=== PATIENT | female | born 1980 | race Caucasian/White ===

== ENCOUNTER 2018-11-05 20:59 | Emergency (ER) | payer MEDICAID ==
[2018-11-05 21:17] VITALS: BP 148/87
--- NOTE | 2018-11-05 21:55 | EDM.PDOC ---
<Sonal Ballard N - Last Filed: 11/05/18 21:49> ED HPI GENERAL MEDICAL PROBLEM - General Chief Complaint: Fever Stated Complaint: SORE THROAT,FEVER/CHILLS Time Seen by Provider: 11/05/18 21:40 Source of Information: Reports: Patient History Limitations: Reports: No Limitations - History of Present Illness INITIAL COMMENTS - FREE TEXT/NARRATIVE: Anabella is a 38-year-old female who presents to the ER with complaints of a sore throat for the past 2.5 days. Reports that she has had strep throat infections multiple times in the past, and thinks this feels the same way. No known exposures to sick individuals. She has had the influenza vaccine. Reports associated fevers, chills, fatigue, myalgias, headaches, some nausea, and abdominal cramping. Reports pain with swallowing. She is able to drink fluids. Denies cough, shortness of breath, or changes in bowel habits. 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 Denies: Ear Pain, Nosebleed, Nose Pain, Rhinitis, Sinus Problem Respiratory: Reports: No Symptoms. Denies: Shortness of Breath, Pleuritic Chest Pain, Cough Cardiovascular: Reports: No Symptoms. Denies: Chest Pain Endocrine: Reports: No Symptoms GI/Abdominal: Reports: Abdominal Pain, Nausea. Denies: Constipation, Diarrhea, Melena, Vomiting : Reports: No Symptoms. Denies: Dysuria, Frequency, Urgency Musculoskeletal: Reports: No Symptoms Skin: Reports: No Symptoms. Denies: Rash Neurological: Reports: No Symptoms Psychiatric: Reports: No Symptoms Hematologic/Lymphatic: Reports: No Symptoms Immunologic: Reports: No Symptoms ED EXAM, ENT - Physical Exam Exam: See Below Exam Limited By: No Limitations General Appearance: Alert, WD/WN, No Apparent Distress Eye Exam: Bilateral Eye: EOMI, PERRL Ears: Normal External Exam, Normal Canal, Hearing Grossly Normal, Normal TMs Nose: Normal Inspection, Normal Mucousa, No Blood Mouth/Throat: Normal Inspection, Normal Gums, Normal Lips, Pharyngeal Erythema, Tonsillar Erythema, Tonsillar Exudates, Tonsillar Swelling (3+ bilaterally). No : Drooling, Uvular Deviation, Uvular Edema Head: Atraumatic, Normocephalic Neck: Normal Inspection, Supple, Non-Tender, Full Range of Motion Respiratory/Chest: No Respiratory Distress, Lungs Clear, Normal Breath Sounds Cardiovascular: Regular Rate, Rhythm, No JVD, No Murmur, No Rub GI/Abdominal: Normal Bowel Sounds, Soft, Non-Tender, No Organomegaly, No Distention Neurological: Alert, Oriented, Normal Cognition Psychiatric: Normal Affect, Normal Mood Skin: Warm, Dry, Intact, Normal Color, No Rash Lymphatic: No Adenopathy (of anterior and posterior cervical chains) Course - Vital Signs Last Recorded V/S: Last Vital Signs Temp 97.4 F 11/05/18 21:19 Pulse 118 H 11/05/18 21:19 Resp 16 11/05/18 21:19 BP 148/87 H 11/05/18 21:19 Pulse Ox 96 11/05/18 21:19 Departure - Departure Disposition: Home, Self-Care 01 Clinical Impression: Streptococcal pharyngitis - Discharge Information Referrals: PCP,None [Primary Care Provider] - Forms: ED Department Discharge Additional Instructions: Take full course of antibiotics, use Tylenol or Motrin as needed for pain control Please followup with your primary care provider in 7-10 days if not better, please call return to the emergency department with worsening of symptoms., <MirAbdirizak - Last Filed: 11/05/18 22:08> ED ROS ENT - Review of Systems Review Of Systems: See Below ED EXAM, ENT - Physical Exam Text/Narrative:: Agree with exam below Departure - Departure Time of Disposition: 22:07 Condition: Good - Assessment/Plan Plan: Assessment Acuity = acute Site and laterality = streptococcal pharyngitis Etiology = group A streptococcus Manifestations = fever Location of injury = Home Lab values = rapid strep is positive, influenza A and B both negative Plan Clindamycin 300 mg by mouth every 8 hours 10 days follow-up primary care 7-10 days if no improvement Abdirizak Lainez MD was personally available for consultation in the ED. I have reviewed the chart and agree with the documentation as recorded by the [employer] Student, including the assessment, treatment plan and disposition. Abdirizak Lainez MD personally saw and examined the patient. I have reviewed and agree with the [employer] Student's findings. This note was dictated using [employer] voice recognition software please call with any questions on syntax or grammar.
== END 2018-11-05 22:15 | disposition home or self-care (01) ==
LOC: JP.ED 20:59
DX: J02.0 Streptococcal pharyngitis (principal); Z88.0 Allergy status to penicillin
CPT/HCPCS: 87430; 87804; 87804-59; 99283

== ENCOUNTER 2021-07-24 14:32 | Emergency (ER) | payer MEDICAID ==
[2021-07-24 15:35] VITALS: BP 149/84; PULSE 103
--- NOTE | 2021-07-24 16:28 | EDM.PDOC ---
ED HPI GENERAL MEDICAL PROBLEM - General Chief Complaint: Fever Stated Complaint: TESTED POSITIVE FOR COVID WITH AT HOME TEST Time Seen by Provider: 07/24/21 16:25 Source of Information: Reports: Patient, RN Notes Reviewed History Limitations: Reports: No Limitations - History of Present Illness INITIAL COMMENTS - FREE TEXT/NARRATIVE: 40-year-old female presents emergency department day complaint of Covid-like symptoms, she is Body aches fevers weakness fatigue feels short of breath loss of taste and smell, unvaccinated Generalized Pain Score (Numeric/FACES): 6 - Related Data Allergies Allergy/AdvReac Type Severity Reaction Status Date / Time Penicillins Allergy Rash Verified 07/24/21 15:35 Home Meds: Home Meds NK [No Known Home Meds] 11/16/14 [History] 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: Oncologic (Cancer) History: Reports: Leukemia, Other (See Below) 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 - Infectious Disease History Infectious Disease History: Reports: Chicken Pox - Past Surgical History HEENT Surgical History: Reports: None GI Surgical History: Reports: None Female Surgical History: Reports: D&C, Tubal Ligation Social & Family History - Tobacco Use Tobacco Use Status *Q: Never Tobacco User - Caffeine Use Caffeine Use: Reports: Soda - Recreational Drug Use Recreational Drug Use: No ED ROS GENERAL - Review of Systems Review Of Systems: See Below Constitutional: Reports: Fever, Weakness, Fatigue Respiratory: Reports: Shortness of Breath Cardiovascular: Reports: Dyspnea on Exertion GI/Abdominal: Reports: Other (Loss of taste and smell) ED EXAM, GENERAL - Physical Exam Exam: See Below Exam Limited By: No Limitations General Appearance: Alert, WD/WN, No Apparent Distress Respiratory/Chest: No Respiratory Distress, Lungs Clear, Normal Breath Sounds, No Accessory Muscle Use, Chest Non-Tender Cardiovascular: Regular Rate, Rhythm, No Murmur Course - Vital Signs Last Recorded V/S: Last Vital Signs Temp 97.9 F 07/24/21 15:29 Pulse 103 H 07/24/21 15:29 Resp 18 07/24/21 15:29 BP 149/84 H 07/24/21 15:29 Pulse Ox 97 07/24/21 15:29 Departure - Departure Time of Disposition: 16:27 Disposition: Home, Self-Care 01 Condition: Fair Clinical Impression: COVID-19 - Discharge Information Instructions: 10 Things You Can Do to Manage Your COVID-19 Symptoms at Home - [facility] (03/28/2021) Referrals: PCP,None [Primary Care Provider] - Additional Instructions: The surgery center will call you for an appointment time for COVID-19 monoclonal antibody therapy Sepsis Event Note (ED) - Focused Exam Vital Signs: Vital Signs Temp Pulse Resp BP Pulse Ox 07/24/21 15:29 97.9 F 103 H 18 149/84 H 97 - Assessment/Plan Plan: Assessment Acuity = acute Site and laterality = viral syndrome Etiology = COVID-19 Manifestations = none Location of injury = Home Lab values = none Plan She is not hypoxic at this time, she is a candidate for monoclonal antibody therapy in order is provided, plan is to do this tomorrow morning This note was dictated using [employer] voice recognition software please call with any questions on syntax or grammar.
== END 2021-07-24 16:56 | disposition home or self-care (01) ==
LOC: JP.ED 14:32
DX: U07.1 COVID-19 (principal); Z88.0 Allergy status to penicillin
CPT/HCPCS: 99284